=== PATIENT | female | born 1950 | race Caucasian/White ===

== ENCOUNTER 2023-05-18 11:53 | Emergency (ER) | payer MEDICARE, SELFPAY ==
[2023-05-18] VITALS (8 sets, daily range): BP systolic 138–158; BP diastolic 22–120; PULSE 54–80; RESP 12–22; TEMP 36.5; O2SAT 79–100; BMI 32.4
--- NOTE | 2023-05-18 11:59 | PC.NURSE ---
PATIENT PLACED ON 2 L NC 02 DUE TO OXYGEN SATURATION OF 88% ON UPON ARRIVAL.
--- NOTE | 2023-05-18 12:01 | XRR_ITS ---
PROCEDURE INFORMATION: Exam: XR Right Shoulder Exam date and time: 05/18/2023 12:15 PM Age: 72 years old Clinical indication: Injury or trauma; Fall; Dislocation; Shoulder; Right; Additional info: Fall with right shoulder pain TECHNIQUE: Imaging protocol: Radiologic exam of the right shoulder. Views: 2 or more views. COMPARISON: No relevant prior studies available. FINDINGS: Bones/joints: There is anterior inferior dislocation of the humeral head in relation to the glenoid. No clear evidence of fracture. There is mild degenerative changes of the right glenohumeral and acromioclavicular joints, manifested by periarticular osteophytes. Soft tissues: Normal. XR/XR shoulder RT min 2V* [id number] IMPRESSION: Right anterior shoulder dislocation.
--- NOTE | 2023-05-18 12:08 | W.ED.FALL ---
Documented by User: JOSE ANGEL Butt 05/18/23 14:57 HPI - Fall General: Chief Complaint: Fall Stated Complaint: RIGHT SHOULDER PAIN S/P FALL Time Seen by Provider: 05/18/23 12:01 History of Present Illness: Patient is a 72-year-old female comes to the ED with right shoulder pain after fall. Fall occurred just prior to arrival. Patient was brought in via EMS and they gave her 100 mcg of fentanyl and 4 mg of Zofran while in route. Patient says she was currently moving into a new home and she was carrying some stuff in and slipped on a plastic sheet that was on the ground. She fell and landed on her right shoulder. She states that she landed on a linoleum floor. She says she did bump her forehead a little but denies any loss of consciousness, headache, nausea/vomiting, numbness tingling or weakness to 1 side of her body or face or vision changes. She rates her pain currently a 9 out of 10 and says any movement with her right arm causes worsening pain in her shoulder. She also endorses some pain in her right elbow. Patient is not on any blood thinners. Associated symptoms-after fall: Denies abdominal pain, chest pain, headache(s), hematuria or neck pain Review of Systems Const: Denies: fever(s), chills or fatigue Eyes: Denies: change in vision or eye discomfort ENMT: Denies: throat pain, odynophagia, nasal discharge or nasal congestion Card: Denies: chest pain, palpitations, edema, swelling of feet/ankles, dyspnea on exertion or orthopnea Resp: Denies: dyspnea, productive cough or non-productive cough GI: Denies: abdominal pain, nausea, vomiting, diarrhea, constipation or hematochezia : Denies: flank pain, dysuria or hematuria Musc: Reports: extremity pain (Right shoulder pain) and limited range of motion (Right shoulder); Denies: neck pain, back pain or extremity swelling Skin/Breast: Denies: rash or new lesions Neuro: Denies: headache(s), numbness in extremities or weakness in extremities [facility] ED PFSH: Medical History (Updated 05/18/23 @ 14:45 by Robin Yuan DO) No pertinent family history Surgical History (Updated 05/18/23 @ 12:14 by JOSE ANGEL Butt) No pertinent past surgical history Physical Exam Const: COMMON NORMALS: patient oriented x3 and alert HENMT: COMMON NORMALS: normocephalic HEAD & SCALP: normocephalic MOUTH: Normal oral and palatal mucosa present THROAT: posterior oropharynx normal and uvula midline Eye: COMMON NORMALS: Equal, round and reactive pupils present, EOMs intact bilaterally and conjunctivae normal CONJUNCTIVA: Yes conjunctivae normal PUPIL: Yes Equal, round and reactive pupils present Neck/C-Spine: COMMON NORMALS: supple GENERAL: Yes normal visual inspection Resp: COMMON NORMALS: normal respiratory effort, No retractions, No use of accessory muscles and clear to auscultation bilaterally AUSCULTATION: clear to auscultation bilaterally Cardio: COMMON NORMALS: regular rate, regular rhythm, S1 normal heart sound present, S2 normal heart sound present, No gallops present (Cardio), No clicks present (Cardio), No murmurs present (Cardio) and Peripheral pulses 2+ throughout RATE: regular rate RHYTHM: regular rhythm HEART SOUNDS: S1 normal heart sound present and S2 normal heart sound present PERIPHERAL PULSES: Peripheral pulses 2+ throughout GI: COMMON NORMALS: Normal to inspection, nondistended, normoactive bowel sounds present, Soft to palpation, non-tender and no masses PALPATION: Yes Soft to palpation : COMMON NORMALS: Yes no CVA tenderness BLADDER/KIDNEY EXAM: Yes no CVA tenderness Back/Pelvis: COMMON NORMALS: no CVA tenderness Extremity: NARRATIVE EXTREMITY EXAM: Right shoulder?visible deformity at shoulder joint seen. Tenderness at the head of humerus. Neurovascular intact distally. Limited range of motion due to pain. Patient also has tenderness to the medial and lateral aspect of right elbow endorses pain with flexion and extension of elbow. GENERAL: Yes normal exam except as noted Neuro: COMMON NORMALS: patient oriented x3, CN's II-XII intact bilaterally, moves all extremities and no focal motor deficits SENSORIUM/ORIENTATION: Yes alert SPEECH: speech normal GAIT: Yes Normal gait present Skin: GENERAL SKIN EXAM: dry skin Course Vital Signs: Vital signs: Vital Signs Temperature 97.7 F 05/18/23 11:54 Pulse Rate 58 L 05/18/23 13:27 Respiratory Rate 18 05/18/23 13:27 Blood Pressure 148/77 05/18/23 13:27 Pulse Oximetry 95 05/18/23 13:27 Oxygen Delivery Me thod Nasal Cannula 05/18/23 13:27 Oxygen Flow Rate 3 05/18/23 13:27 MDM - Fall Medical Decision Making Patient is a 72-year-old female comes to the ED with right shoulder pain after fall. Fall occurred just prior to arrival. Patient was brought in via EMS and they gave her 100 mcg of fentanyl and 4 mg of Zofran while in route. Patient says she was currently moving into a new home and she was carrying some stuff in and slipped on a plastic sheet that was on the ground. She fell and landed on her right shoulder. She states that she landed on a linoleum floor. She says she did bump her forehead a little but denies any loss of consciousness, headache, nausea/vomiting, numbness tingling or weakness to 1 side of her body or face or vision changes. She rates her pain currently a 9 out of 10 and says any movement with her right arm causes worsening pain in her shoulder. She also endorses some pain in her right elbow. Patient is not on any blood thinners. Vital stable. Right shoulder?visible deformity at shoulder joint seen. Tenderness at the head of humerus. Neurovascular intact distally. Limited range of motion due to pain. Patient also has tenderness to the medial and lateral aspect of right elbow endorses pain with flexion and extension of elbow. Neuro exam shows no deficits. Rest of exam is benign. Shoulder x-ray shows right anterior shoulder dislocation. Right elbow x-ray shows no acute findings. I spoke with Dr. Yuan about patient case and he will be performing the sedation and reduction of patient's right shoulder dislocation, then discharging patient with shoulder immobilizer. Order with case management was placed for patient to be referred to Ortho for follow-up. Lab Data Radiology Impressions Elbow X-Ray 05/18/23 12:11 IMPRESSION: No acute findings. Shoulder X-Ray 05/18/23 13:12 IMPRESSION: Imaging findings of pulmonary edema. Pneumonia should be excluded clinically. ADDENDUM: 05/18/23 4440 IMPRESSION: 1. Status post successful reduction of right shoulder anterior dislocation. 2. Imaging findings of pulmonary edema. Pneumonia should be excluded clinically. Discharge Plan Discharge Patient Disposition: Home Clinical Impression: Anterior dislocation of right shoulder Condition: Stable Prescriptions: New hydrocodone-acetaminophen 5-325 mg tablet 1 tab PO Q6H PRN (Reason: pain) Qty: 20 0RF No Action atorvastatin 40 mg Tablet 40 mg PO QPM riboflavin (vitamin B2) 100 mg Tablet 100 mg PO DAILY oxybutynin chloride 5 mg Tablet 5 mg PO BID topiramate 100 mg Tablet 100 mg PO BID losartan 100 mg Tablet 50 mg PO DAILY magnesium 200 mg Tablet 200 mg PO DAILY duloxetine 60 mg Capsule,Delayed Release(Dr/Ec) 60 mg PO BID acetaminophen 325 mg Capsule 650 mg PO QID PRN (Reason: Pain) Discharge Orders: Discharge ED (Routine); Ordered 05/18/23 Ordered By: Robin Yuan Discharge Diet: Usual diet Discharge Activity: Limit activity as instructed Patient Instructions: Closed Reduction (ED), Opioid Safety, Pain Management Activity Restrictions/Additional Instructions: You were seen today for shoulder dislocation which was reduced under conscious sedation. Wear the shoulder immobilizer until you are released by the orthopedist. electronics commodity manager will make arrangements for follow-up. Coding Level of Care Code ED Die Repair Machinist for Chg Fwd Documented by User: Robin Yuan DO 05/18/23 15:00 HPI - Fall General: Chief Complaint: Fall Stated Complaint: RIGHT SHOULDER PAIN S/P FALL Time Seen by Provider: 05/18/23 12:01 [facility] ED PFSH: Medical History (Updated 05/18/23 @ 14:45 by Robin Yuan DO) No pertinent family history Surgical History (Updated 05/18/23 @ 12:14 by JOSE ANGEL Butt) No pertinent past surgical history Procedures Orthopedic Joint Reduction Joint #1: Time Out Performed: Yes Side: right Joint Reduction Location: shoulder Analgesia: procedural sedation Shoulder Technique Used (if applicable): traction/counter-traction Post-reduction neuro exam: intact Post-reduction vascular: intact Post Reduction X-Ray Obtained: Yes Post Reduction X-Ray Results: reduced Splint Applied: Yes Patient Tolerated Procedure: well Procedural Sedation Indication: fracture/dislocation reduction ASA Class: I Preparation: monitoring tech applied, pulse oximeter, capnometry used, supplemental O2 applied, suction/airway equipment at bedside and IV secured Fentanyl: IV Fentanyl dose (mcg): 50 Midazolam: IV Midazolam dose (mg): 3 Complications: hypoventilation Interventions: oxygen applied, airway repositioned and other (Nasopharyngeal airway placed) Course Vital Signs: Vital signs: Vital Signs Temperature 97.7 F 05/18/23 11:54 Pulse Rate 58 L 05/18/23 13:27 Respiratory Rate 18 05/18/23 13:27 Blood Pressure 148/77 05/18/23 13:27 Pulse Oximetry 95 05/18/23 13:27 Oxygen Delivery Me thod Nasal Cannula 05/18/23 13:27 Oxygen Flow Rate 3 05/18/23 13:27 MDM - Fall Medical Decision Making Patient is a 72-year-old female comes to the ED with right shoulder pain after fall. Fall occurred just prior to arrival. Patient was brought in via EMS and they gave her 100 mcg of fentanyl and 4 mg of Zofran while in route. Patient says she was currently moving into a new home and she was carrying some stuff in and slipped on a plastic sheet that was on the ground. She fell and landed on her right shoulder. She states that she landed on a linoleum floor. She says she did bump her forehead a little but denies any loss of consciousness, headache, nausea/vomiting, numbness tingling or weakness to 1 side of her body or face or vision changes. She rates her pain currently a 9 out of 10 and says any movement with her right arm causes worsening pain in her shoulder. She also endorses some pain in her right elbow. Patient is not on any blood thinners. Vital stable. Right shoulder?visible deformity at shoulder joint seen. Tenderness at the head of humerus. Neurovascular intact distally. Limited range of motion due to pain. Patient also has tenderness to the medial and lateral aspect of right elbow endorses pain with flexion and extension of elbow. Neuro exam shows no deficits. Rest of exam is benign. Shoulder x-ray shows right anterior shoulder dislocation. Right elbow x-ray shows no acute findings. I spoke with Dr. Yuan about patient case and he will be performing the sedation and reduction of patient's right shoulder dislocation. Care assumed from Álvaro Amaya. Reviewed x-rays. Discussed with the patient patient had fallen at home she has an obvious anterior shoulder dislocation on x-ray. Discussed procedural sedation and reduction. She wishes to proceed see the notes. She did have some hypopnea and desaturation with procedural sedation she had a very quick reaction to the Versed. Her airway was repositioned and briefly she was ventilated by Ambu bag and GAS ENGINE REPAIRER was placed. After a few minutes she recovered spontaneously. Head of the bed was elevated GAS ENGINE REPAIRER left in place and supplemental oxygen left she continued to improve with time. She eventually was able up ambulating nonverbal without any complications or difficulties. She ambulated to and from the bathroom without difficulty she has a shoulder immobilizer in place we will discharge the patient home and have her follow-up with orthopedics. Patient vies to be in the shoulder immobilizer unless bathing or changing her close and she should keep her arm immediately adjacent to the chest wall with doing that should not raise and abduction or flexion Medical Records I reviewed the patient's medical records. Lab Data Radiology Impressions Elbow X-Ray 05/18/23 12:11 IMPRESSION: No acute findings. Shoulder X-Ray 05/18/23 13:12 IMPRESSION: Imaging findings of pulmonary edema. Pneumonia should be excluded clinically. ADDENDUM: 05/18/23 1352 IMPRESSION: 1. Status post successful reduction of right shoulder anterior dislocation. 2. Imaging findings of pulmonary edema. Pneumonia should be excluded clinically. Discharge Plan Discharge Patient Disposition: Home Clinical Impression: Anterior dislocation of right shoulder Condition: Stable Prescriptions: New hydrocodone-acetaminophen 5-325 mg tablet 1 tab PO Q6H PRN (Reason: pain) Qty: 20 0RF No Action atorvastatin 40 mg Tablet 40 mg PO QPM riboflavin (vitamin B2) 100 mg Tablet 100 mg PO DAILY oxybutynin chloride 5 mg Tablet 5 mg PO BID topiramate 100 mg Tablet 100 mg PO BID losartan 100 mg Tablet 50 mg PO DAILY magnesium 200 mg Tablet 200 mg PO DAILY duloxetine 60 mg Capsule,Delayed Release(Dr/Ec) 60 mg PO BID acetaminophen 325 mg Capsule 650 mg PO QID PRN (Reason: Pain) Discharge Orders: Discharge ED (Routine); Ordered 05/18/23 Ordered By: Robin Yuan Discharge Diet: Usual diet Discharge Activity: Limit activity as instructed Patient Instructions: Closed Reduction (ED), Opioid Safety, Pain Management Activity Restrictions/Additional Instructions: You were seen today for shoulder dislocation which was reduced under conscious sedation. Wear the shoulder immobilizer until you are released by the orthopedist. electronics commodity manager will make arrangements for follow-up. Coding Level of Care Code ED Die Repair Machinist for Devonte Gonzalez
--- NOTE | 2023-05-18 12:11 | XRR_ITS ---
PROCEDURE INFORMATION: Exam: XR Right Elbow Exam date and time: 05/18/2023 12:15 PM Age: 72 years old Clinical indication: Injury or trauma; Fall; Blunt trauma (contusions or hematomas); Elbow; Right; Additional info: Fall with elbow pain TECHNIQUE: Imaging protocol: Radiologic exam of the right elbow. Views: 3 or more views. COMPARISON: No relevant prior studies available. FINDINGS: Bones/joints: Normal. Soft tissues: Normal. XR/XR elbow RT min 3V* [id number] IMPRESSION: No acute findings.
[2023-05-18] MEDS: morphine 4 mg/mL SDV 1 mL IVP (12:13)
[2023-05-18] MEDS: midazolam 1 mg/mL INJ 2 mL 3 MG IVP (13:09)
[2023-05-18] MEDS: fentaNYL 50 mcg/mL INJ 2mL IVP (13:09)
--- NOTE | 2023-05-18 13:10 | PC.NURSE ---
PT UNABLE TO SIGN CONSENT DUE TO RIGHT SHOULDER DISLOCATION. PT VERBILIZED OK.
--- NOTE | 2023-05-18 13:12 | XRR_ITS ---
PROCEDURE INFORMATION: Exam: XR Right Shoulder Exam date and time: 05/18/2023 1:15 PM Age: 72 years old Clinical indication: Injury or trauma; Fall; Dislocation; Shoulder; Right; Additional info: Post reduction TECHNIQUE: Imaging protocol: Radiologic exam of the right shoulder. Views: 1 view. COMPARISON: CR (CHEST, ) 05/18/2023 12:15 PM FINDINGS: Bones/joints: Degenerative changes of the spine seen. Lungs: Low lung volumes. There is redistribution and indistinctness of the pulmonary vasculature, in association with haziness of the lungs, which in the setting of cardiomegaly is consistent with pulmonary edema. Pneumonia should be excluded clinically. No pneumothorax. Heart/Mediastinum: Stable cardiomediastinal silhouette. Soft tissues: Normal. XR/XR shoulder RT 1V [id number] IMPRESSION: Imaging findings of pulmonary edema. Pneumonia should be excluded clinically.
--- NOTE | 2023-05-18 13:56 | PC.NURSE ---
PT CONSCIOUS SEDATED FOR SHOULDER REDUCTION. PATIENT GIVEN 3 MG VERSED, 50 MCG FENTANYL. PT IMMEDIATELY SEDATED AND ARM REDUCED. WHILE PHYSICIAN STILL IN ROOM, PT DESATTED TO 79%. RESPIRATORY PRESENT AND PLACED BAG MASK AND NASOPHARYNGEAL AIRWAY PLACED IN LEFT NOSTRIL BY PHYSICIAN. PT OXYGEN SATURATION BROUGHT UP TO 99%. PATIENT PLACED IN SHOULDER IMMOBILIZER. NURSE REMAINED WITH PT UNTIL STABLE AND BACK ON 3 L NC. THIS NURSE THEN ASKED MANA VALENCIA, TO SIT WITH PATIENT UNTIL FULLY AWAKE. VERSED AND FENTANYL WASTED WITH TORSTEN English LPN FOLLOWING DISCUSSION WITH POLY PHARMACIST ON DUTY.
--- NOTE | 2023-05-18 14:23 | PC.NURSE ---
PT IS NOW AWAKE EATING AND DRINKING, WILL AMBULATE PT TO BATHROOM BEFORE DC TO ENSURE SHE IS STABLE.
--- NOTE | 2023-05-20 07:51 | DCPLANNER ---
Addendum entered by Roberta Ceballos 06/20/23 12:10: Patient did attend this appointment Addendum entered by Roberta Ceballos 05/21/23 15:10: Patient has a follow up appointment scheduled for May at 10:00 with Ahmet at ortho. Original Note: financial reporting manager had message to schedule a follow up appointment for patient with ortho. financial reporting manager sent patients information to the front office staff at ortho. Patients information will be printed and reviewed. Clinic will call patient with appointment information.
--- NOTE | 2023-05-20 11:32 | DCPLANNER ---
manager dish called patient due to no primary care physician - no answer at this time.
== END 2023-05-18 14:58 | disposition home or self-care (01) ==
PROVIDERS: Emergency Provider Family Medicine
DX: S43.084A Other dislocation of right shoulder joint, initial encounter (principal); Z79.899 Other long term (current) drug therapy; W01.0XXA Fall on same level from slipping, tripping and stumbling without subsequent striking against object, initial encounter; Y92.009 Unspecified place in unspecified non-institutional (private) residence as the place of occurrence of the external cause
CPT/HCPCS: 23650; 73020; 73030; 73080; 96374; 99285; J2250; J2270; J3010

== ENCOUNTER → 2023-05-23 09:53 | Outpatient (BNVA) | payer MEDICARE, SELFPAY | PROVIDERS: Referring Provider Family Medicine; Visit Provider Nurse Practitioner Family | DX: S49.91XA Unspecified injury of right shoulder and upper arm, initial encounter (principal); W19.XXXA Unspecified fall, initial encounter; Y92.010 Kitchen of single-family (private) house as the place of occurrence of the external cause | CPT/HCPCS: 99203 ==

== ENCOUNTER → 2023-05-27 09:54 | Outpatient (BNVA) | payer MEDICARE, SELFPAY | PROVIDERS: Visit Provider Nurse Practitioner Family | DX: S49.91XA Unspecified injury of right shoulder and upper arm, initial encounter (principal); S43.081A Other subluxation of right shoulder joint, initial encounter; W19.XXXA Unspecified fall, initial encounter; Y92.010 Kitchen of single-family (private) house as the place of occurrence of the external cause | CPT/HCPCS: 73030; 99213 ==

== ENCOUNTER 2023-06-05 08:15 | Outpatient (RCR) | payer MEDICARE, SELFPAY | END 2023-06-10 23:59 | disposition home or self-care (01) | LOC: SPT 08:15 | PROVIDERS: Visit Provider Nurse Practitioner Family | DX: S43.004D Unspecified dislocation of right shoulder joint, subsequent encounter (principal); X58.XXXD Exposure to other specified factors, subsequent encounter | CPT/HCPCS: 97110; 97161 ==

== ENCOUNTER 2023-06-11 06:00 | Outpatient (RCR) | payer MEDICARE, SELFPAY | END 2023-07-11 23:59 | disposition home or self-care (01) | LOC: SPT 06:00 | PROVIDERS: Visit Provider Nurse Practitioner Family | DX: S43.005D Unspecified dislocation of left shoulder joint, subsequent encounter (principal); X58.XXXD Exposure to other specified factors, subsequent encounter | CPT/HCPCS: 97110 ==

== ENCOUNTER 2023-07-12 06:00 | Outpatient (RCR) | payer MEDICARE, SELFPAY | END 2023-08-10 23:59 | disposition home or self-care (01) | LOC: SPT 06:00 | PROVIDERS: Visit Provider Nurse Practitioner Family | DX: M25.511 Pain in right shoulder (principal); M25.611 Stiffness of right shoulder, not elsewhere classified | CPT/HCPCS: 97110 ==